=== PATIENT | male | born 1950 | race Caucasian/White ===

== ENCOUNTER → 2018-10-02 | Outpatient (CLI) | payer OTHER ==
--- NOTE | 2018-10-02 16:01 | PCVCIMAG ---
APPROVED REPORT Study performed: 10/02/2018 14:52:07 Exam: Stress Echocardiogram Indication: Chest pain , Hypertension, Hyperlipidemia Patient Location: Echo lab Stress Nurse: Felicity Ribera RN Status: routine Ht: 5 ft 10 in HR: 69 bpm BP: 124/76 mmHg Rhythm: NSR Procedure The patient underwent an Exercise Stress Test using the Dino Protocol. Blood pressure, heart rate, and EKG were monitored. An Echocardiogram was performed by shampoo technician in four stages in quad fashion. At peak stress, four selected images were obtained and placed side by side with resting images for comparison. Stress Test Details Stress Test: Exercise stress testing was performed using a Dino protocol. HR Resting HR: 69 bpmMax Heart Rate (APMHR): 155 bpm Max HR Achieved: 162 bpmTarget HR (85% APMHR): 131 bpm % of APMHR: 104 Recovery HR: 93 bpm HR response to stress: Normal HR response to stress BP Resting BP: 124/76 mmHg Max BP: 178/76 mmHg Recovery BP: 142/76 mmHg BP response to stress: Normal blood pressure response to stress. ECG Resting ECG: Sinus Rhythm Stress ECG: Sinus Rhythm ST Change: Normal Arrhythmia: None Recovery ECG: Sinus Rhythm Recovery ST Change: Normal Recovery Arrhythmia: None Clinical Reason for Termination: Maximal effort Stress Symptoms: Dyspnea Exercise duration: 9 min 20 sec Highest Stage Achieved: Stage 4: 4.2 mph at 16% grade. Exercise capacity: 11.2 METs Overall Exercise Capacity for Age: Good Scale: Active Angina Score: None Pre-Stress Echo The resting Echocardiogram showed normal left ventricular contractility with an estimated Ejection Fraction of about >55%. Normal wall motion in all segments on baseline images. Post-Stress Echo The stress Echocardiogram showed normal left ventricular contractility with an estimated Ejection Fraction of about 65%. Normal augmentation of wall motion in all segments on post stress images. Clinical No clinical or ECG evidence for ischemia. Conclusion Clinical Response: Non-ischemic Exercise Capacity: Superior Stress ECG Response: Non-ischemic Stress Echo Images: Non-ischemic The left ventricle is normal in size and wall thickness in both the rest and stress images. Other Information Study Quality: Good <Conclusion> The left ventricle is normal in size and wall thickness in both the rest and stress images.
== END | disposition home or self-care (01) ==
LOC: PCVCIMAG 14:40
PROVIDERS: ATTEND Neuromusculoskeletal Medicine & OMM
DX: R07.9 Chest pain, unspecified (principal); I10 Essential (primary) hypertension; E78.5 Hyperlipidemia, unspecified
CPT/HCPCS: 93325; 93351